=== PATIENT | female | born 1975 | race Caucasian/White ===

== ENCOUNTER 2023-08-30 13:09 | Emergency (ER) | payer BC, SELFPAY ==
[2023-08-30 13:25] VITALS: BP 121/86; PULSE 66; RESP 16; TEMP 36.8; O2SAT 97; BMI 27.4
--- NOTE | 2023-08-30 13:47 | ED_ITS ---
HPI - General Adult General Date Seen: 08/30/23 Chief complaint: Unspecified Complaint, Adult Stated complaint: possible concussion Time Seen by Provider: 08/30/23 13:29 Source: patient Mode of arrival: ambulatory Limitations: no limitations History of Present Illness HPI narrative: Patient is a 47-year-old woman here at the recommendation of the nurse triage line for evaluation of possible concussion. She says a few days ago she [place]. She says an older woman tripped and fell landing on her and knocking her to the ground. She did not actually hit her head, she did twist her ankle and at 1st she thought she broke her ankle. She says she got up quickly and then had a wave of nausea and dizziness. When she got home that night she had an episode of vomiting. The next day she says that she felt just a little fatigued, when specifically asked she said that she did note couple episodes of mild dizziness. She did not have further vomiting, and says yesterday she really felt fine. She thought the vomiting that night might have been related to an illness since her son just got over a bad stomach bug. Today, she had an episode of vomiting after eating followed by diarrhea. At that point, her mom suggested that she called the triage line and they recommended that she come in. She does not have a headache. She has not had any neurologic symptoms, does not feel nauseated currently. She says her ankle is feeling better. General health is good, no pertinent medications. Related Data Home Medications Medication Instructions Recorded Confirmed bupropion HCl PO 08/30/23 escitalopram oxalate .ROUTE 08/30/23 lamotrigine .ROUTE 08/30/23 Review of Systems Status of ROS: Reports: 10 or more systems reviewed and unremarkable except as noted in History and below [facility] Social History Smoking Status: Never smoker Do you use any of these nicotine containing products: None Second hand tobacco smoke exposure: No How often do you have a drink containing alcohol: never How often do you have six or more drinks on one occasion: Never AUDIT-C Alcohol total score: 0 Non-prescribed substance use: denies use service: No Exam Narrative: Exam Narrative: Vital signs as noted above. In general, an alert, well-appearing patient. Head: Normocephalic, atraumatic. Eyes: Pupils are equal reactive. Extraocular movements are full. Conjunctivae are normal. ENT: Mucous membranes are moist. Throat is normal. TMs normal bilaterally. Neck: Supple without lymphadenopathy. Nontender palpation. Heart: Regular rate and rhythm. No murmur or rub. Lungs: Clear bilaterally. No increased work of breathing, crackles or wheezes. Abdomen: Soft and nontender. No organomegaly. Extremities: Well perfused. No edema. No calf tenderness. Pulses intact. Neurologic: Patient is alert and oriented to person and place. Speech is fluent. Face is symmetric. Moves all extremities equally. Affect: Normal. Skin: Warm and dry. Well perfused. Const: Vital Signs, click to edit/add: Vital Signs - 24 hr 08/30/23 13:25 Temperature 98.2 F Pulse Rate [Pulse Oximeter] 66 Respiratory Rate 16 Blood Pressure [Ri ght Upper Arm] 121/86 Pulse Oximetry 97 Oxygen Delivery Me thod Room Air Documenting provider has reviewed patient's vital signs: yes Course Course ED Course: Discussed with her that I do not think imaging is likely to be helpful. Her real question is whether her symptoms are due to concussion or stomach flu, and we discussed that I would expect her head CT to be normal with concussion and stomach flu. I think there a couple of possibilities, 1 is that the vomiting the night of this injury was more related to concussion and today she has developed a stomach bug, she could have had a couple episodes of vomiting related concussion, or all of this could be GI related. Given that she does not have a headache, has a normal neurologic exam, is several days post injury and did not have actually significant head injury in the 1st place, I do not think imaging is warranted. She is comfortable with that. Would recommend sticking with clear liquids today, advance as able. Discussed that if symptoms are persistent over the next several days to week, it is probably more concussive, w e discussed the natural history of concussion, advancement of activities based on symptoms etcetera. Follow up with primary care for ongoing concerns, return at any time to the ER for severe symptoms such as uncontrolled vomiting, severe headache, mental status changes etcetera. Vital Signs Vital signs: Initial Vital Signs Temperature 98.2 F 08/30/23 13:25 Temperature Source Temporal Artery Scan 08/30/23 13:25 Pulse Rate 66 08/30/23 13:25 Pulse Rhythm Regular 08/30/23 13:25 Respiratory Rate 16 08/30/23 13:25 Blood Pressure 121/86 08/30/23 13:25 Blood Pressure Mean 97 08/30/23 13:25 Blood Pressure Position Sitting 08/30/23 13:25 Pulse Oximetry 97 08/30/23 13:25 Oxygen Delivery Method Room Air 08/30/23 13:25 Vital Signs Temperature 98.2 F 08/30/23 13:25 Pulse Rate 66 08/30/23 13:25 Respiratory Rate 16 08/30/23 13:25 Blood Pressure 121/86 08/30/23 13:25 Pulse Oximetry 97 08/30/23 13:25 Oxygen Delivery Method Room Air 08/30/23 13:25 Temperature 98.2 F 08/30/23 13:25 Pulse Rate 66 08/30/23 13:25 Respiratory Rate 16 08/30/23 13:25 Blood Pressure 121/86 08/30/23 13:25 Pulse Oximetry 97 08/30/23 13:25 Oxygen Delivery Method Room Air 08/30/23 13:25 Discharge Plan Discharge Prescriptions: No Action escitalopram oxalate [Lexapro] .ROUTE bupropion HCl [Wellbutrin SR] PO lamotrigine .ROUTE
== END 2023-08-30 14:19 | disposition home or self-care (01) ==
LOC: ED 14:18
PROVIDERS: Emergency Provider Emergency Medicine
DX: R11.10 Vomiting, unspecified (principal)
CPT/HCPCS: 99282; 99283

== ENCOUNTER 2025-06-15 09:57 | Outpatient (CLI) | payer OTHER, SELFPAY ==
--- NOTE | 2025-06-15 10:15 | CRLHL7_ITS ---
For Patients: As a result of the Century Cures Act, medical imaging exams and procedure reports are released immediately into your electronic medical record. You may view this report before your referring provider. If you have questions, please contact your health care provider. INDICATION: Embedded IUD arms COMPARISON: None. TECHNIQUE: 2D larios-scale and color Doppler images were acquired of the pelvis using a transabdominal and transvaginal approach. Transvaginal imaging performed to better visualize the endometrial stripe and ovaries. FINDINGS: Sonographic images demonstrate a normal size and smooth outer contour of the uterus. Uterus measures 7.5 cm in length by 3.4 cm in AP diameter by 4.3 cm in transverse dimension. The myometrium has a normal uniform echotexture. The endometrial lining appears normal. IUD arms are embedded in the myometrium in the lower uterine segment. The right ovary measures 2.4 x 1.6 x 1.5 cm in size and the left ovary measures 2.4 x 1.0 x 1.7 cm. The ovaries demonstrate normal arterial and venous blood flow on color Doppler analysis. There are no suspicious fluid collections within the cul-de-sac. IMPRESSION: Both arms of the IUD are embedded in the lower uterine segment myometrium. Dictated by González Knight MD @ 06/15/2025 3:15:23 PM (Electronically Signed)
== END 2025-06-15 09:58 | disposition home or self-care (01) ==
LOC: US 09:57
PROVIDERS: Visit Provider Obstetrics & Gynecology
DX: T83.9XXA Unspecified complication of genitourinary prosthetic device, implant and graft, initial encounter (principal); T83.32XA Displacement of intrauterine contraceptive device, initial encounter
CPT/HCPCS: 76830; 76856

== ENCOUNTER 2025-07-05 07:49 | Day surgery (SDC) | payer OTHER, SELFPAY ==
[2025-07-05 08:09] VITALS: BMI 27.2
[2025-07-05] MEDS: LACTATED RINGERS 500 ML 500 ML 100 ML IV (08:12)
[2025-07-05 08:15] LABS: Hemoglobin* 13.5 gm/dL (12.0-16.0)
[2025-07-05 08:17] VITALS: BP 108/76; PULSE 65; RESP 16; TEMP 36.4; O2SAT 95
[2025-07-05 08:45] LABS: Ur HCG Qualitative* Negative (Negative)
[2025-07-05] MEDS: SODIUM CHLORIDE 0.9 % (FLUSH) 10 ML SYRINGE IVF (08:47)
--- NOTE | 2025-07-05 08:50 | W.PM.H&PU_ITS ---
History & Physical Update History & Physical Update H&P Reviewed and patient assessed: No changes noted H&P Updates: Ms. Dudley is seen in pre-op prior to planned diagnostic hysteroscopy, removal of imbedded IUD arms, proceed as indicated. No interval change to her health history or questions today. We started by reviewing her ultrasound findings in detail. Specifically, internal ultrasound confirmed that the body of the IUD has been removed and both arms appear to remain in the uterus and embedded within the myometrium. On my own imaging review, the right arm looks more accessible where as the left appears to be deeply embedded. No description of perforation of the arm in rad iology report. Explained if I am unable to remove both arms hysteroscopically, we have 2 potential next steps today. First, we could proceed to a diagnostic laparoscopy where if the IUD arm is noted to be perforated we could then proceed with a laparoscopic removal. Given its position in the lateral lower uterine segment, explained this would be done with great care to avoid vascular injury. Certainly if that were to occur, she would have an increased risk of bleeding where there is a low risk that this could even require hysterectomy if bleeding could not be controlled. If I were to be unable to see the IUD arm laparoscopically nor hysteroscopically, I would not recommend blind attempt at incising the uterine serosa to attempt removal - where instead we would abort the procedure. Alternatively, if the IUD arms cannot be both removed hysteroscopically today we could elect to not proceed with laparoscopy and instead refer her to a subspecialist that expertise in retained IUDs (such as CFP, MIGS or surgical DARRION). Explained that this would be particularly important if she does intend to pursue an upcoming IVF cycle, where she notes she is still uncertain how she would like to proceed. Patient has a planned trip to [facility] tomorrow. After counseling, we mutually agree it is in her best interest to only proceed with a hysteroscopic procedure today. She under stands potential risks of this procedure could include incomplete removal of the IUD arms, bleeding, infection, damage to surrounding structures, uterine perforation (where diagnostic laparoscopy could still be required) in addition to medical complications of surgery/anesthesia. All questions answered. Plan to proceed with hysteroscopy, removal of embedded IUD arms, proceed as indicated. Again, we would only proceed to laparoscopy if needed for patient safety today - we will not proceed simply for the indication of inability to visualize/remove the arms hysteroscopically. Written consent was re-signed. Post-procedure restrictions and expectations reviewed. Pre-op labs reviewed and are within normal limits. UPT negative. No perioperative antibiotics indicated.
--- NOTE | 2025-07-05 08:59 | P.GYNPRC_ITS ---
Procedure Note Time Seen by Provider: 08:59 Date of procedure: 07/05/25 Will [facility] bill your pro fee for this procedure?: Yes Pre-op diagnosis: Fractured Paragard IUD Embedded IUD arms Post-op diagnosis: Fractured Paragard IUD Embedded IUD arms Polypoid appearance of endometrial cavity Procedure: Hysteroscopy Removal of embedded IUD arm x2 Dilation and curettage (Truclear) Anesthesia: MAC and local Complications: None Surgeon: Lisa Jamison MD Estimated blood loss (mL): 15 IV fluids (mL): 700 Pathology: specimen obtained, sent to pathology Condition: stable Disposition: same day Findings: Unremarkable genital exam Cervical stenosis Both IUD arms visualized, noted to be embedded in the right and left lateral lower uterine segments Endometrial cavity assessment notable for small area with sessile polypoid-like appearance Procedure Description: Procedure in detail: Patient was taken to the operating room with IV running. She was positioned in dorsal lithotomy position with her legs fully supported in Yellofin stirrups. Monitored anesthesia care was administered. She was prepped and draped in the usual sterile fashion. Exam under anesthesia was performed for the above-noted findings. Speculum was inserted. Cervix visualized and grasped along the anterior lip with a single-tooth tenaculum. Paracervical block was performed in the usual fashion with 0.5% bupivacaine, total 20cc. Cervix was noted to have stenosis at external os, where os finder was utilized to gently dilate the endocervical canal. Metal dilators were then utilized to serially dilated to accommodate the TRUCLEAR hysteroscope. This was assembled with saline inflow and outflow in place. The line was flushed of bubbles. The hysteroscope was advanced through the cervix into the endometrial cavity for the above noted findings. Both embedded IUD arms could be visualized. A hysteroscopic grasper was advanced through the operating channel. The left IUD arm was grasped at then end, pulled toward the left in attempt to release embedded portion then removed under direct visualization alongside the hysteroscope. Arm was placed on the operative field. Hysteroscope was advanced into the endometrial cavity again, where the right arm was grasped with hysteroscopic grasped and removed in the same fashion. Diagnostic hysteroscopy was then performed, where no brisk bleeding was noted at the embedded IUD arm sites. There was polypoid tissue noted at the mid uterine body. Given potential upcoming IVF cycle, proceeded to hysteroscopic resection of this suspected polyp to normalize endometrial cavity consistent with our pre-op counseling. The tissue morcellator was then inserted through the operating channel. Window lock was performed. Under direct visualization the polypoid appearing tissue was resected. Bilateral tubal ostia were visualized. Hysteroscope and Truclear were removed. Tenaculum was removed from the anterior lip of cervix. Minimal oozing was noted from the cervical os. Tenaculum site hemostasis was achieved with pressure and silver nitrate x3. Excellent hemostasis was noted. Patient tolerated procedure well. She was taken to recovery area in stable condition. Surgical debrief completed with above details, fluid deficit 250cc. Specimen is endometrial curettings for pathologic evaluation.
[2025-07-05] MEDS: BUPIVACAINE 0.5% 30 ML INJECTION (09:16)
[2025-07-05] MEDS: SILVER NITRATE APPLICATOR 1 EACH STICK..EA. TOPICAL (09:40)
--- NOTE | 2025-07-05 09:55 | P.ANES_ITS ---
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
--- NOTE | 2025-07-05 09:55 | W.ANESCHARGE ---
Anesthesia Charges Start Date/Time Anesthesia Start Date: 07/05/25 Anesthesia Start Time: 08:54 Stop Date/Time Anesthesia Stop Date: 07/05/25 Anesthesia Stop Time: 09:55 Coding CPT Codes CPT Codes: ANESTH HYSTEROSCOPE/GRAPH - 72396 ([id number]) P2 - PATIENT W/MILD SYST DISEASE, QZ - PALLET REPAIRER SVC W/O DULITE MACHINE BLUER BY
[2025-07-05 10:00] VITALS: BP 101/85; PULSE 63; RESP 12; TEMP 36.2; O2SAT 95
[2025-07-05 10:15] VITALS: BP 109/72; PULSE 66; RESP 16; O2SAT 97
[2025-07-05 10:30] VITALS: BP 118/70; PULSE 68; RESP 16; O2SAT 96
[2025-07-05 10:45] VITALS: BP 108/74; PULSE 64; RESP 16; TEMP 36.2; O2SAT 97
== END 2025-07-05 10:59 | disposition home or self-care (01) ==
LOC: OR 07:51
PROVIDERS: Visit Provider Obstetrics & Gynecology
PROC: 0UDB8ZZ Extraction of Endometrium, Via Natural or Artificial Opening Endoscopic (ICD-10-PCS; CPT 58558; principal; 2025-07-05 08:45)
DX: T83.31XA Breakdown (mechanical) of intrauterine contraceptive device, initial encounter (principal); T83.32XA Displacement of intrauterine contraceptive device, initial encounter; N84.0 Polyp of corpus uteri
CPT/HCPCS: 58562; 00952; 36415; 81025; 85018; 88305; A9270; C1782; J0665; J1100; J1885; J2250; J2405; J2704; J3010; J3490; J7120